=== PATIENT | male | born 1995 | race Caucasian/White ===

== ENCOUNTER 2017-02-06 02:49 | Emergency (ER) | payer OTHER ==
[~2017-02-06] VITALS: Ht 167.6 cm; Wt 110.0 kg
[~2017-02-06 02:49] MED LIST: BACTRIM,SEPT1 TABLET PO; CLINDAMYCIN HC300 MG PO; INTUNIV1 MG PO; MAGIC MOUTHWASH1 ML MM; MOTRIN800 MG PO; PERCOCET 5/31 TABLET PO; STRATTERA40 MG PO; TRAMADOL HCL50 MG PO; TRILEPTAL600 MG PO; ULTRAM50 MG PO
[2017-02-06 02:51] VITALS: BP 134/96
== END 2017-02-06 05:15 | disposition left against medical advice (07) ==
LOC: EME 02:49
DX: K08.89 Other specified disorders of teeth and supporting structures (principal); Z53.21 Procedure and treatment not carried out due to patient leaving prior to being seen by health care provider
CPT/HCPCS: 99281

== ENCOUNTER 2017-04-08 01:14 | Inpatient (IN) | payer OTHER ==
[2017-04-08] VITALS (8 sets, daily range): BP systolic 117–137; BP diastolic 60–87
[~2017-04-08] VITALS: Ht 172.7 cm; Wt 104.0 kg
[2017-04-08 01:35] LABS: BASOPHIL COUNT 0.1 K/uL (0-0.1); EOSINOPHIL (%) 0.6 % (0-5); EOSINOPHIL COUNT 0.1 K/uL (0-0.3); HEMATOCRIT 49.8 % (38.0-50.0); IMMATURE GRANULOCYTE (%) 3.4 % (0.0-0.7); IMMATURE GRANULOCYTE COUNT 0.7 K/uL; INSTRUMENT ABS NEUTROPHIL CT 14.5 K/uL; LYMPHOCYTE COUNT 5.1 K/uL (1.0-2.8); MCH 29.4 PG (29.0-34.0); MCHC 31.9 G/DL (30.0-36.0); MCV 92.2 FL (86-99); MEAN PLAT.VOLUME 10.1 uM^3 (9.0-12.4); MONOCYTE (%) 5.3 % (3-12); MONOCYTE COUNT 1.2 K/uL (0-0.8); NEUTROPHIL (%) 66.9 % (45-76); NEUTROPHIL COUNT 14.5 K/uL (1.8-6.4); PLATELET COUNT 321 K/uL (156-360); RBC DIS.WIDTH-CV 12.4 % (11.8-14.6); RBC DIS.WIDTH-SD 41.7 % (39-53); WHITE BLOOD COUNT 21.7 K/uL (4.1-10.2)
[2017-04-08 01:40] LABS: BASE EXCESS -13.4 mEq/L (-3 to +3); BICARBONATE 18.3 mEq/L (22-26); CARBOXY HGB 3.1 % (0-5); METHEMOGLOBIN 1.5 % (0-1.5); PCO2 66 mm Hg (35-45); PO2 53 mm Hg (80-100)
[2017-04-08 01:41] LABS: COMMENTS - BLOOD GASES C+A+; DEVICE AMBU BAG; FI02 100 %; O2 FLOW 15 L/MIN; SITE RR
[2017-04-08 01:42] LABS: pH 7.05 (7.35-7.45)
[2017-04-08 01:44] LABS: AMYLASE 94 IU/L (1-118); CHLORIDE 104 mEq/L (99-109); POTASSIUM 3.9 mEq/L (3.7-5.4)
[2017-04-08 01:47] LABS: ANION GAP 20 MEQ/L (2-14); GLUCOSE 276 mg/dL (70-99); SODIUM 140 mEq/L (136-147)
[2017-04-08 01:49] LABS: GFR ESTIMATE (CALCULATED) > 59 mL/min/; SERUM ETHYL ALCOHOL < 10 mg/dL
[2017-04-08 01:50] LABS: UREA NITROGEN (BUN) 10 mg/dL (9-23)
[2017-04-08 01:52] LABS: LIPASE 44 U/L (1.0-51.0)
[2017-04-08 01:56] LABS: INTER. NORMALIZED RATIO 1.1; PROTHROMBIN TIME 11.7 SEC (10.2-12.9)
[2017-04-08 01:59] LABS: PTT 28.3 SEC (25-37)
[2017-04-08 02:18] LABS: TROP-I INTERPRETATION NEGATIVE; TROPONIN-I < 0.01 ng/mL (0.0-0.30)
[2017-04-08 02:20] LABS: ADD MIUA? YES; BILIRUBIN NEGATIVE; BLOOD LARGE; COLOR YELLOW ((YELLOW)); GLUCOSE (STRIP) 50; KETONES NEGATIVE; LEUKOCYTES NEGATIVE; NITRITE NEGATIVE; PROTEIN (STRIP) >=500; SPECIFIC GRAVITY 1.042 (1.000-1.030); UROBILINOGEN 0.2 MG/DL (0.2-1.0)
[2017-04-08 02:26] LABS: BACTERIA 2+ /HPF; EPITHELIAL CELLS 1+ /HPF; HYALINE CASTS 30-40 /LPF; MUCUS 2+ /LPF; UCUL ADDED? YES; WHITE BLOOD CELLS 15-20 /HPF (0-5)
[2017-04-08 02:36] LABS: ADD MEDTOX COMMENT Y; AMPHETAMINE NEGATIVE (500 ng/mL); BARBITURATES NEGATIVE (200 ng/mL); BENZODIAZEPINES NEGATIVE (150 ng/mL); COCAINE NEGATIVE (150 ng/mL); INTERNAL CONTROLS VALID? YES; METHADONE NEGATIVE (200 ng/mL); METHAMPHETAMINE NEGATIVE (500 ng/mL); OPIATES (MORPHINE) NEGATIVE (100 ng/mL); OXYCODONE NEGATIVE (100 ng/mL); PHENCYCLIDINE NEGATIVE (25 ng/mL); PROPOXYPHENE NEGATIVE (300 ng/mL); THC CANNABINOIDS PRESUMPTIVE POSITIVE (50 ng/mL); TRICYCLIC ANTIDEPRESSANTS NEGATIVE (300 ng/mL)
[2017-04-08 04:02] LABS: BASE EXCESS -7.6 mEq/L (-3 to +3); BICARBONATE 19.3 mEq/L (22-26); COMMENTS - BLOOD GASES C; DEVICE 840; FI02 100 %; MODE AC; PCO2 43 mm Hg (35-45); PO2 219 mm Hg (80-100); SITE LR ALINE; pH 7.26 (7.35-7.45)
[2017-04-08 04:03] LABS: MECHANICAL RATE 16 resp/min; PEEP 8 CM/H20; TOTAL RESP RATE 27 resp/min
[2017-04-08 05:04] LABS: BASE EXCESS -5.4 mEq/L (-3 to +3); CARBOXY HGB 2.9 % (0-5); METHEMOGLOBIN 1.2 % (0-1.5); PO2 229 mm Hg (80-100)
[2017-04-08 05:05] LABS: PCO2 49 mm Hg (35-45); SITE LR ALINE; pH 7.26 (7.35-7.45)
[2017-04-08 05:06] LABS: COMMENTS - BLOOD GASES C; DEVICE 840; FI02 80 %; MECHANICAL RATE 20 resp/min; MODE AC; PEEP 8 CM/H20; TIDAL VOLUME 500 ML; TOTAL RESP RATE 27 resp/min
[2017-04-08 07:52] LABS: HEMATOCRIT 38.9 % (38.0-50.0); MCH 29.8 PG (29.0-34.0); MCHC 33.4 G/DL (30.0-36.0); MCV 89.2 FL (86-99); MEAN PLAT.VOLUME 9.6 uM^3 (9.0-12.4); PLATELET COUNT 250 K/uL (156-360); RBC DIS.WIDTH-CV 12.3 % (11.8-14.6); RBC DIS.WIDTH-SD 40.5 % (39-53); RED BLOOD COUNT 4.36 M/uL (4.00-5.50); WHITE BLOOD COUNT 26.1 K/uL (4.1-10.2)
[2017-04-08 07:54] LABS: METH RESISTANT S AUREUS PCR NEGATIVE (NEGATIVE)
[2017-04-08 07:59] LABS: PROBE CHECK PASS; SPECIMEN PROCESSING CONTROL PASS
[2017-04-08 08:52] LABS: COMMENTS - BLOOD GASES C+; DEVICE VENT; FI02 40 %; HEMOGLOBIN 13.2 (12.5-16.6); MECHANICAL RATE 12 resp/min; MODE AC; PCO2 38 mm Hg (35-45); PEEP 8 CM/H20; PO2 109 mm Hg (80-100); TIDAL VOLUME 600 ML; TOTAL RESP RATE 24 resp/min; pH 7.31 (7.35-7.45)
[2017-04-08 08:53] LABS: BASE EXCESS -6.6 mEq/L (-3 to +3); BICARBONATE 19.1 mEq/L (22-26); CARBOXY HGB 3.3 % (0-5); METHEMOGLOBIN 1.5 % (0-1.5); O2 SATURATION (CALCULATED) 95.7 % (95-99)
[2017-04-09] VITALS (20 sets, daily range): BP systolic 64–161; BP diastolic 34–90
[2017-04-09 05:24] LABS: BASE EXCESS 4.1 mEq/L (-3 to +3); CARBOXY HGB 1.7 % (0-5); METHEMOGLOBIN 1.7 % (0-1.5); pH 7.36 (7.35-7.45)
[2017-04-09 05:25] LABS: BICARBONATE 30.5 mEq/L (22-26); COMMENTS - BLOOD GASES A+C+; DEVICE VENT; FI02 40 %; MECHANICAL RATE 14 resp/min; MODE AC; PCO2 54 mm Hg (35-45); PEEP 8 CM/H20; PO2 71 mm Hg (80-100); SITE RR; TIDAL VOLUME 600 ML; TOTAL RESP RATE 15 resp/min
[2017-04-09 07:51] LABS: HEMATOCRIT 31.1 % (38.0-50.0); MCH 30.6 PG (29.0-34.0); MCHC 33.8 G/DL (30.0-36.0); MCV 90.7 FL (86-99); MEAN PLAT.VOLUME 9.9 uM^3 (9.0-12.4); PLATELET COUNT 178 K/uL (156-360); RBC DIS.WIDTH-CV 12.6 % (11.8-14.6); RBC DIS.WIDTH-SD 41.2 % (39-53); WHITE BLOOD COUNT 15.7 K/uL (4.1-10.2)
[2017-04-09 07:53] LABS: RED BLOOD COUNT 3.43 M/uL (4.00-5.50)
[2017-04-09 08:08] LABS: ALKALINE PHOSPHATASE 62 IU/L (3-129); ANION GAP 5 MEQ/L (2-14); CHLORIDE 107 MEQ/L (99-109); GFR ESTIMATE (CALCULATED) > 59 mL/min/; GLUCOSE 146 mg/dL (70-99); SAMPLE HEMOLYSIS CHECK 0; SAMPLE ICTERIC CHECK 0; SAMPLE LIPEMIA CHECK 0; SODIUM 141 MEQ/L (136-147); TOTAL BILIRUBIN 0.5 MG/DL (0.0-1.0); UREA NITROGEN (BUN) 12 mg/dL (9-23)
[2017-04-09 08:21] LABS: POTASSIUM 4.9 MEQ/L (3.7-5.4)
[2017-04-10] VITALS (32 sets, daily range): BP systolic 87–166; BP diastolic 36–78
[2017-04-10 06:02] LABS: MCH 28.9 PG (29.0-34.0); MCHC 32.3 G/DL (30.0-36.0); MCV 89.4 FL (86-99); MEAN PLAT.VOLUME 10.6 uM^3 (9.0-12.4); PLATELET COUNT 129 K/uL (156-360); RBC DIS.WIDTH-CV 12.2 % (11.8-14.6); RBC DIS.WIDTH-SD 39.6 % (39-53); WHITE BLOOD COUNT 9.2 K/uL (4.1-10.2)
[2017-04-10 06:04] LABS: RED BLOOD COUNT 2.46 M/uL (4.00-5.50)
[2017-04-10 06:18] LABS: ALKALINE PHOSPHATASE 41 IU/L (3-129); ANION GAP 4 MEQ/L (2-14); CHLORIDE 107 MEQ/L (99-109); GFR ESTIMATE (CALCULATED) > 59 mL/min/; GLUCOSE 140 mg/dL (70-99); POTASSIUM 4.8 MEQ/L (3.7-5.4); SAMPLE HEMOLYSIS CHECK 0; SAMPLE ICTERIC CHECK 0; SAMPLE LIPEMIA CHECK 0; SODIUM 139 MEQ/L (136-147); TOTAL BILIRUBIN 0.4 MG/DL (0.0-1.0); UREA NITROGEN (BUN) 14 mg/dL (9-23)
[2017-04-10 13:36] LABS: BASE EXCESS 6.6 mEq/L (-3 to +3); BICARBONATE 32.2 mEq/L (22-26); CARBOXY HGB 1.4 % (0-5); METHEMOGLOBIN 1.4 % (0-1.5); PCO2 52 mm Hg (35-45)
[2017-04-10 13:37] LABS: COMMENTS - BLOOD GASES A+C+; DEVICE VENT; FI02 70 %; MECHANICAL RATE 14 resp/min; MODE ACVC; PEEP 8 CM/H20; PO2 86 mm Hg (80-100); SITE RR; TOTAL RESP RATE 16 resp/min
[2017-04-11] VITALS (26 sets, daily range): BP systolic 85–140; BP diastolic 42–93
[2017-04-11 05:22] LABS: HEMATOCRIT 23.9 % (38.0-50.0); MCH 31.6 PG (29.0-34.0); MCHC 35.6 G/DL (30.0-36.0); MCV 88.8 FL (86-99); MEAN PLAT.VOLUME 11.6 uM^3 (9.0-12.4); NRBC (%) 0.4 /100 WBC (0-0); PLATELET COUNT 158 K/uL (156-360); RBC DIS.WIDTH-CV 13.1 % (11.8-14.6); RBC DIS.WIDTH-SD 42.3 % (39-53); RED BLOOD COUNT 2.69 M/uL (4.00-5.50); WHITE BLOOD COUNT 9.3 K/uL (4.1-10.2)
[2017-04-11 06:27] LABS: ALKALINE PHOSPHATASE 41 IU/L (3-129); ANION GAP 4 MEQ/L (2-14); CHLORIDE 106 MEQ/L (99-109); GFR ESTIMATE (CALCULATED) > 59 mL/min/; GLUCOSE 132 mg/dL (70-99); POTASSIUM 4.5 MEQ/L (3.7-5.4); SAMPLE HEMOLYSIS CHECK 0; SAMPLE ICTERIC CHECK 0; SAMPLE LIPEMIA CHECK 0; SODIUM 139 MEQ/L (136-147); UREA NITROGEN (BUN) 11 mg/dL (9-23)
[2017-04-11 06:31] LABS: TOTAL BILIRUBIN 0.6 MG/DL (0.0-1.0)
[2017-04-12] VITALS (23 sets, daily range): BP systolic 90–165; BP diastolic 47–89
[2017-04-12 05:32] LABS: HEMATOCRIT 24.1 % (38.0-50.0); MCH 29.6 PG (29.0-34.0); MCHC 32.8 G/DL (30.0-36.0); MCV 90.3 FL (86-99); MEAN PLAT.VOLUME 10.6 uM^3 (9.0-12.4); NRBC (%) 0.3 /100 WBC (0-0); PLATELET COUNT 159 K/uL (156-360); RBC DIS.WIDTH-CV 13.2 % (11.8-14.6); RBC DIS.WIDTH-SD 43.7 % (39-53); RED BLOOD COUNT 2.67 M/uL (4.00-5.50); WHITE BLOOD COUNT 7.5 K/uL (4.1-10.2)
[2017-04-12 06:21] LABS: ALKALINE PHOSPHATASE 40 IU/L (3-129); ANION GAP 6 MEQ/L (2-14); CHLORIDE 108 MEQ/L (99-109); GFR ESTIMATE (CALCULATED) > 59 mL/min/; GLUCOSE 125 mg/dL (70-99); POTASSIUM 4.2 MEQ/L (3.7-5.4); SAMPLE HEMOLYSIS CHECK 0; SAMPLE ICTERIC CHECK 0; SAMPLE LIPEMIA CHECK 0; SODIUM 141 MEQ/L (136-147); TOTAL BILIRUBIN 0.5 MG/DL (0.0-1.0); UREA NITROGEN (BUN) 8 mg/dL (9-23)
[2017-04-12 09:31] LABS: DIRECT BILIRUBIN 0.2 mg/dL (0.0-0.3)
[2017-04-12 12:09] LABS: ADD MIUA? YES; BILIRUBIN NEGATIVE; BLOOD NEGATIVE; COLOR AMBER ((YELLOW)); GLUCOSE (STRIP) NEGATIVE; KETONES NEGATIVE; LEUKOCYTES NEGATIVE; NITRITE NEGATIVE; PROTEIN (STRIP) 100; SPECIFIC GRAVITY 1.035 (1.000-1.030)
[2017-04-12 12:30] LABS: BACTERIA RARE /HPF; EPITHELIAL CELLS RARE /HPF; MUCUS 2+ /LPF; RED BLOOD CELLS 15-20 /HPF (0-5); UCUL ADDED? YES
[2017-04-13] VITALS (24 sets, daily range): BP systolic 109–168; BP diastolic 49–93
[2017-04-13 05:45] LABS: HEMATOCRIT 22.9 % (38.0-50.0); MCH 29.6 PG (29.0-34.0); MCHC 32.3 G/DL (30.0-36.0); MCV 91.6 FL (86-99); MEAN PLAT.VOLUME 10.1 uM^3 (9.0-12.4); NRBC (%) 0.4 /100 WBC (0-0); PLATELET COUNT 200 K/uL (156-360); RBC DIS.WIDTH-CV 13.5 % (11.8-14.6); RBC DIS.WIDTH-SD 45.2 % (39-53); WHITE BLOOD COUNT 7.4 K/uL (4.1-10.2)
[2017-04-13 06:37] LABS: ALKALINE PHOSPHATASE 38 IU/L (3-129); ANION GAP 5 MEQ/L (2-14); CHLORIDE 106 MEQ/L (99-109); GFR ESTIMATE (CALCULATED) > 59 mL/min/; GLUCOSE 125 mg/dL (70-99); POTASSIUM 3.9 MEQ/L (3.7-5.4); SAMPLE HEMOLYSIS CHECK 0; SAMPLE ICTERIC CHECK 0; SAMPLE LIPEMIA CHECK 0; SODIUM 140 MEQ/L (136-147); TOTAL BILIRUBIN 0.5 MG/DL (0.0-1.0); TRIGLYCERIDES 111 MG/DL (Normal: <150); UREA NITROGEN (BUN) 10 mg/dL (9-23)
[2017-04-13 06:43] LABS: EOSINOPHIL COUNT 0.3 K/uL (0-0.3); IMMATURE GRANULOCYTE (%) 1.9 % (0.0-0.7); IMMATURE GRANULOCYTE COUNT 0.1 K/uL; INSTRUMENT ABS NEUTROPHIL CT 4.7 K/uL; LYMPHOCYTE COUNT 1.3 K/uL (1.0-2.8); MONOCYTE (%) 13.3 % (3-12); NEUTROPHIL (%) 62.8 % (45-76); NEUTROPHIL COUNT 4.7 K/uL (1.8-6.4); PLATELET CLUMPS PRESENT - PLATELET COUNT APPEARS ADQ.
[2017-04-13 11:49] LABS: POINT-OF-CARE METER ID UU14208751
[2017-04-13 16:18] LABS: HEMATOCRIT 24.3 % (38.0-50.0); MCV 92.4 FL (86-99)
[2017-04-13 16:28] LABS: ANION GAP 7 MEQ/L (2-14); CHLORIDE 110 MEQ/L (99-109); MAGNESIUM 1.9 mg/dl (1.3-2.7); POTASSIUM 3.5 MEQ/L (3.7-5.4); SAMPLE HEMOLYSIS CHECK 0; SAMPLE ICTERIC CHECK 0; SAMPLE LIPEMIA CHECK 0; SODIUM 147 MEQ/L (136-147)
[2017-04-13 16:34] LABS: GFR ESTIMATE (CALCULATED) > 59 mL/min/; GLUCOSE 121 mg/dL (70-99); UREA NITROGEN (BUN) 12 mg/dL (9-23)
[2017-04-13 16:39] LABS: TROP-I INTERPRETATION NEGATIVE; TROPONIN-I 0.02 ng/mL (0.0-0.30)
[2017-04-14] VITALS (23 sets, daily range): BP systolic 88–174; BP diastolic 43–106
[2017-04-14 08:59] LABS: HEMATOCRIT 24.1 % (38.0-50.0); MCH 30.6 PG (29.0-34.0); MCHC 31.5 G/DL (30.0-36.0); MCHC 32.4 G/DL (30.0-36.0); MCV 94.5 FL (86-99); MCV 95.3 FL (86-99); MEAN PLAT.VOLUME 11.5 uM^3 (9.0-12.4); NRBC (%) 0.3 /100 WBC (0-0); PLATELET COUNT 206 K/uL (156-360); PLATELET COUNT 215 K/uL (156-360); RBC DIS.WIDTH-CV 13.6 % (11.8-14.6); RBC DIS.WIDTH-SD 47.4 % (39-53); RBC DIS.WIDTH-SD 47.8 % (39-53); RED BLOOD COUNT 2.53 M/uL (4.00-5.50); RED BLOOD COUNT 2.55 M/uL (4.00-5.50); WHITE BLOOD COUNT 10.3 K/uL (4.1-10.2); WHITE BLOOD COUNT 10.5 K/uL (4.1-10.2)
[2017-04-14 09:29] LABS: ALKALINE PHOSPHATASE 41 IU/L (3-129); ANION GAP 8 MEQ/L (2-14); CHLORIDE 112 MEQ/L (99-109); EOSINOPHIL (%) 1.2 % (0-5); EOSINOPHIL COUNT 0.1 K/uL (0-0.3); GFR ESTIMATE (CALCULATED) > 59 mL/min/; GLUCOSE 98 mg/dL (70-99); IMMATURE GRANULOCYTE (%) 1.8 % (0.0-0.7); IMMATURE GRANULOCYTE COUNT 0.2 K/uL; INSTRUMENT ABS NEUTROPHIL CT 7.6 K/uL; LYMPHOCYTE COUNT 1.5 K/uL (1.0-2.8); MAGNESIUM 2.1 mg/dl (1.3-2.7); MONOCYTE (%) 10.1 % (3-12); MONOCYTE COUNT 1.1 K/uL (0-0.8); NEUTROPHIL (%) 72.3 % (45-76); NEUTROPHIL COUNT 7.6 K/uL (1.8-6.4); POTASSIUM 4.1 MEQ/L (3.7-5.4); SAMPLE HEMOLYSIS CHECK 0; SAMPLE ICTERIC CHECK 0; SAMPLE LIPEMIA CHECK 0; SODIUM 147 MEQ/L (136-147); TOTAL BILIRUBIN 0.5 MG/DL (0.0-1.0); UREA NITROGEN (BUN) 16 mg/dL (9-23)
[2017-04-14 09:34] LABS: TROP-I INTERPRETATION NEGATIVE; TROPONIN-I < 0.01 ng/mL (0.0-0.30)
[2017-04-15] VITALS (24 sets, daily range): BP systolic 85–153; BP diastolic 49–86
[2017-04-15 05:46] LABS: BASE EXCESS 5.8 mEq/L (-3 to +3); BICARBONATE 30.6 mEq/L (22-26); COMMENTS - BLOOD GASES C+A+; DEVICE 840 VENT; FI02 40 %; METHEMOGLOBIN 1.2 % (0-1.5); MODE SPONT; PCO2 45 mm Hg (35-45); PO2 74 mm Hg (80-100); PRES. SUPPORT 5 CM/H2O; SITE LR; TOTAL RESP RATE 16 resp/min; pH 7.44 (7.35-7.45)
[2017-04-15 05:47] LABS: PEEP 5 CM/H20
[2017-04-15 07:12] LABS: HEMATOCRIT 23.7 % (38.0-50.0); MCH 29.6 PG (29.0-34.0); MCHC 32.1 G/DL (30.0-36.0); MCV 92.2 FL (86-99); MEAN PLAT.VOLUME 10.4 uM^3 (9.0-12.4); NRBC (%) 0.2 /100 WBC (0-0); RBC DIS.WIDTH-CV 13.3 % (11.8-14.6); RBC DIS.WIDTH-SD 45.1 % (39-53); RED BLOOD COUNT 2.57 M/uL (4.00-5.50); WHITE BLOOD COUNT 13.7 K/uL (4.1-10.2)
[2017-04-15 07:26] LABS: ALKALINE PHOSPHATASE 48 IU/L (3-129); ANION GAP 6 MEQ/L (2-14); CHLORIDE 111 MEQ/L (99-109); GFR ESTIMATE (CALCULATED) > 59 mL/min/; GLUCOSE 140 mg/dL (70-99); MAGNESIUM 2.4 mg/dl (1.3-2.7); SAMPLE HEMOLYSIS CHECK 0; SAMPLE ICTERIC CHECK 0; SAMPLE LIPEMIA CHECK 0; SODIUM 145 MEQ/L (136-147); TOTAL BILIRUBIN 0.5 MG/DL (0.0-1.0); UREA NITROGEN (BUN) 21 mg/dL (9-23)
[2017-04-15 07:32] LABS: PLATELET COUNT 326 K/uL (156-360)
[2017-04-15 08:21] LABS: EOSINOPHIL (%) 2.5 % (0-5); EOSINOPHIL COUNT 0.3 K/uL (0-0.3); IMMATURE GRANULOCYTE (%) 1.2 % (0.0-0.7); IMMATURE GRANULOCYTE COUNT 0.2 K/uL; LYMPHOCYTE COUNT 1.1 K/uL (1.0-2.8); MONOCYTE (%) 7.7 % (3-12); MONOCYTE COUNT 1.1 K/uL (0-0.8); NEUTROPHIL (%) 80.4 % (45-76)
[2017-04-16] VITALS (24 sets, daily range): BP systolic 84–171; BP diastolic 51–104
[2017-04-16 06:44] LABS: HEMATOCRIT 23.6 % (38.0-50.0); MCH 30.6 PG (29.0-34.0); MCHC 32.2 G/DL (30.0-36.0); MCV 95.2 FL (86-99); MEAN PLAT.VOLUME 10.3 uM^3 (9.0-12.4); NRBC (%) 0.3 /100 WBC (0-0); RBC DIS.WIDTH-CV 13.3 % (11.8-14.6); RBC DIS.WIDTH-SD 45.9 % (39-53); RED BLOOD COUNT 2.48 M/uL (4.00-5.50); WHITE BLOOD COUNT 14.2 K/uL (4.1-10.2)
[2017-04-16 06:47] LABS: PLATELET COUNT 427 K/uL (156-360)
[2017-04-16 07:12] LABS: ALKALINE PHOSPHATASE 53 IU/L (3-129); ANION GAP 7 MEQ/L (2-14); CHLORIDE 109 MEQ/L (99-109); GFR ESTIMATE (CALCULATED) > 59 mL/min/; POTASSIUM 3.8 MEQ/L (3.7-5.4); SAMPLE HEMOLYSIS CHECK 0; SAMPLE ICTERIC CHECK 0; SAMPLE LIPEMIA CHECK 0; SODIUM 143 MEQ/L (136-147); TOTAL BILIRUBIN 0.5 MG/DL (0.0-1.0); UREA NITROGEN (BUN) 21 mg/dL (9-23)
[2017-04-16 07:15] LABS: GLUCOSE 94 mg/dL (70-99)
[2017-04-17] VITALS (24 sets, daily range): BP systolic 82–183; BP diastolic 50–111
[2017-04-17 05:36] LABS: EOSINOPHIL (%) 2.6 % (0-5); EOSINOPHIL COUNT 0.4 K/uL (0-0.3); HEMATOCRIT 22.9 % (38.0-50.0); IMMATURE GRANULOCYTE COUNT 0.2 K/uL; INSTRUMENT ABS NEUTROPHIL CT 11.9 K/uL; LYMPHOCYTE COUNT 1.4 K/uL (1.0-2.8); MCH 31.4 PG (29.0-34.0); MCHC 32.8 G/DL (30.0-36.0); MCV 95.8 FL (86-99); MEAN PLAT.VOLUME 10.1 uM^3 (9.0-12.4); MONOCYTE (%) 8.6 % (3-12); MONOCYTE COUNT 1.3 K/uL (0-0.8); NEUTROPHIL (%) 78.5 % (45-76); NEUTROPHIL COUNT 11.9 K/uL (1.8-6.4); PLATELET COUNT 465 K/uL (156-360); RBC DIS.WIDTH-CV 13.2 % (11.8-14.6); RBC DIS.WIDTH-SD 45.3 % (39-53); RED BLOOD COUNT 2.39 M/uL (4.00-5.50); WHITE BLOOD COUNT 15.2 K/uL (4.1-10.2)
[2017-04-17 06:37] LABS: ALKALINE PHOSPHATASE 55 IU/L (3-129); ANION GAP 7 MEQ/L (2-14); CHLORIDE 112 MEQ/L (99-109); GFR ESTIMATE (CALCULATED) > 59 mL/min/; GLUCOSE 110 mg/dL (70-99); MAGNESIUM 2.3 mg/dl (1.3-2.7); POTASSIUM 3.9 MEQ/L (3.7-5.4); SAMPLE HEMOLYSIS CHECK 0; SAMPLE ICTERIC CHECK 0; SAMPLE LIPEMIA CHECK 0; SODIUM 146 MEQ/L (136-147); TOTAL BILIRUBIN 0.4 MG/DL (0.0-1.0); UREA NITROGEN (BUN) 20 mg/dL (9-23)
[2017-04-17 13:41] LABS: ADD MIUA? NO; BILIRUBIN NEGATIVE; BLOOD NEGATIVE; COLOR YELLOW ((YELLOW)); GLUCOSE (STRIP) NEGATIVE; KETONES NEGATIVE; LEUKOCYTES NEGATIVE; NITRITE NEGATIVE; PROTEIN (STRIP) 30; SPECIFIC GRAVITY 1.018 (1.000-1.030); UCUL ADDED? NO
[2017-04-18] VITALS (21 sets, daily range): BP systolic 80–185; BP diastolic 48–111
[2017-04-18 05:53] LABS: EOSINOPHIL (%) 2.2 % (0-5); EOSINOPHIL COUNT 0.4 K/uL (0-0.3); HEMATOCRIT 45.8 % (38.0-50.0); IMMATURE GRANULOCYTE (%) 0.9 % (0.0-0.7); IMMATURE GRANULOCYTE COUNT 0.2 K/uL; INSTRUMENT ABS NEUTROPHIL CT 14.2 K/uL; MCH 29.5 PG (29.0-34.0); MONOCYTE (%) 6.6 % (3-12); MONOCYTE COUNT 1.1 K/uL (0-0.8); NEUTROPHIL (%) 84.4 % (45-76); NEUTROPHIL COUNT 14.2 K/uL (1.8-6.4); NRBC (%) 0.2 /100 WBC (0-0); RBC DIS.WIDTH-CV 12.9 % (11.8-14.6); RBC DIS.WIDTH-SD 44.3 % (39-53); WHITE BLOOD COUNT 16.9 K/uL (4.1-10.2)
[2017-04-18 05:54] LABS: RED BLOOD COUNT 4.82 M/uL (4.00-5.50)
[2017-04-18 05:58] LABS: ALKALINE PHOSPHATASE 68 IU/L (3-129); ANION GAP 7 MEQ/L (2-14); CHLORIDE 109 MEQ/L (99-109); GFR ESTIMATE (CALCULATED) > 59 mL/min/; GLUCOSE 100 mg/dL (70-99); MAGNESIUM 2.2 mg/dl (1.3-2.7); POTASSIUM 4.3 MEQ/L (3.7-5.4); SAMPLE HEMOLYSIS CHECK 0; SAMPLE ICTERIC CHECK 0; SAMPLE LIPEMIA CHECK 0; SODIUM 144 MEQ/L (136-147); TOTAL BILIRUBIN 0.5 MG/DL (0.0-1.0); UREA NITROGEN (BUN) 20 mg/dL (9-23)
[2017-04-18 06:35] LABS: MEAN PLAT.VOLUME 10.3 uM^3 (9.0-12.4); PLAT.SUFFICIENCY INCREASED; PLATELET COUNT 406 K/uL (156-360)
[2017-04-19] VITALS (30 sets, daily range): BP systolic 0–184; BP diastolic 0–104
[2017-04-19 05:10] LABS: EOSINOPHIL (%) 1.5 % (0-5); EOSINOPHIL COUNT 0.3 K/uL (0-0.3); HEMATOCRIT 21.4 % (38.0-50.0); IMMATURE GRANULOCYTE (%) 1.2 % (0.0-0.7); IMMATURE GRANULOCYTE COUNT 0.2 K/uL; MCHC 31.8 G/DL (30.0-36.0); MCV 94.3 FL (86-99); MONOCYTE (%) 8.6 % (3-12); MONOCYTE COUNT 1.5 K/uL (0-0.8); NEUTROPHIL (%) 82.8 % (45-76); NRBC (%) 0.2 /100 WBC (0-0); PLATELET COUNT 524 K/uL (156-360); RBC DIS.WIDTH-SD 43.8 % (39-53); RED BLOOD COUNT 2.27 M/uL (4.00-5.50); WHITE BLOOD COUNT 16.9 K/uL (4.1-10.2)
[2017-04-19 05:16] LABS: CHLORIDE 112 mEq/L (99-109); POTASSIUM 4.3 mEq/L (3.7-5.4); SODIUM 143 mEq/L (136-147)
[2017-04-19 05:18] LABS: GLUCOSE 119 mg/dL (70-99)
[2017-04-19 05:19] LABS: ANION GAP 8 MEQ/L (2-14)
[2017-04-19 05:22] LABS: GFR ESTIMATE (CALCULATED) > 59 mL/min/; UREA NITROGEN (BUN) 20 mg/dL (9-23)
[2017-04-19 07:58] LABS: HEMATOCRIT 20.1 % (38.0-50.0); MCHC 32.3 G/DL (30.0-36.0); MCV 92.6 FL (86-99); MEAN PLAT.VOLUME 9.8 uM^3 (9.0-12.4); NRBC (%) 0.2 /100 WBC (0-0); PLATELET COUNT 492 K/uL (156-360); RBC DIS.WIDTH-CV 13.2 % (11.8-14.6); RED BLOOD COUNT 2.17 M/uL (4.00-5.50); WHITE BLOOD COUNT 16.5 K/uL (4.1-10.2)
[2017-04-19 10:38] LABS: TRIGLYCERIDES 171 MG/DL (Normal: <150)
[2017-04-19 13:38] LABS: Estimated Average Glucose 111 mg/dL (70-123); HEMOGLOBIN A1c (GLYCOHEMOGLOB) 5.5 % HGB (Below 5.7)
[2017-04-19 16:41] LABS: HEMATOCRIT 28.4 % (38.0-50.0); MCV 92.8 FL (86-99)
[2017-04-19 16:45] LABS: HDL CHOLESTEROL 17 MG/DL (Desirable>=40); LDL CHOLESTEROL 65 mg/dL (Desirable<100); NON-HDL CHOLESTEROL 100 mg/dL (Desirable<160); TOTAL CHOLESTEROL 117 mg/dL (Desirable<200)
[2017-04-19 16:46] LABS: SAMPLE HEMOLYSIS CHECK 0; SAMPLE ICTERIC CHECK 0; SAMPLE LIPEMIA CHECK 0
[2017-04-20] VITALS (22 sets, daily range): BP systolic 93–172; BP diastolic 47–118
[2017-04-20 05:27] LABS: BASE EXCESS 4.2 mEq/L (-3 to +3); BICARBONATE 29.2 mEq/L (22-26); CARBOXY HGB 2.3 % (0-5); COMMENTS - BLOOD GASES C+A+; DEVICE 840 VENT; FI02 35 %; METHEMOGLOBIN 1.6 % (0-1.5); MODE SPONT; PCO2 45 mm Hg (35-45); PO2 68 mm Hg (80-100); PRES. SUPPORT 5 CM/H2O; SITE LR; TOTAL RESP RATE 15 resp/min; pH 7.42 (7.35-7.45)
[2017-04-20 05:28] LABS: PEEP 5 CM/H20
[2017-04-20 05:48] LABS: EOSINOPHIL (%) 2.2 % (0-5); EOSINOPHIL COUNT 0.3 K/uL (0-0.3); HEMATOCRIT 27.6 % (38.0-50.0); IMMATURE GRANULOCYTE (%) 1.3 % (0.0-0.7); IMMATURE GRANULOCYTE COUNT 0.2 K/uL; INSTRUMENT ABS NEUTROPHIL CT 10.3 K/uL; MCH 29.6 PG (29.0-34.0); MCHC 32.2 G/DL (30.0-36.0); MCV 91.7 FL (86-99); MONOCYTE (%) 9.9 % (3-12); MONOCYTE COUNT 1.3 K/uL (0-0.8); NEUTROPHIL (%) 78.5 % (45-76); NEUTROPHIL COUNT 10.3 K/uL (1.8-6.4); NRBC (%) 0.2 /100 WBC (0-0); RBC DIS.WIDTH-CV 13.7 % (11.8-14.6); RBC DIS.WIDTH-SD 45.5 % (39-53); WHITE BLOOD COUNT 13.1 K/uL (4.1-10.2)
[2017-04-20 05:55] LABS: RED BLOOD COUNT 3.01 M/uL (4.00-5.50)
[2017-04-20 06:07] LABS: ANION GAP 9 MEQ/L (2-14); CHLORIDE 111 MEQ/L (99-109); GFR ESTIMATE (CALCULATED) > 59 mL/min/; GLUCOSE 137 mg/dL (70-99); MAGNESIUM 2.2 mg/dl (1.3-2.7); POTASSIUM 3.8 MEQ/L (3.7-5.4); SAMPLE HEMOLYSIS CHECK 0; SAMPLE ICTERIC CHECK 0; SAMPLE LIPEMIA CHECK 0; SODIUM 145 MEQ/L (136-147); UREA NITROGEN (BUN) 19 mg/dL (9-23)
[2017-04-20 06:19] LABS: PLAT.SUFFICIENCY ADEQUATE; PLATELET CLUMPS PRESENT - PLATELET COUNT APPEARS ADQ.
[2017-04-21] VITALS (24 sets, daily range): BP systolic 94–172; BP diastolic 47–93
[2017-04-21 09:30] LABS: ADD MIUA? NO; BILIRUBIN NEGATIVE; BLOOD NEGATIVE; COLOR YELLOW ((YELLOW)); GLUCOSE (STRIP) NEGATIVE; KETONES NEGATIVE; LEUKOCYTES NEGATIVE; NITRITE NEGATIVE; PROTEIN (STRIP) NEGATIVE; SPECIFIC GRAVITY 1.019 (1.000-1.030)
[2017-04-21 09:39] LABS: BASOPHIL COUNT 0.1 K/uL (0-0.1); EOSINOPHIL (%) 2.5 % (0-5); EOSINOPHIL COUNT 0.3 K/uL (0-0.3); HEMATOCRIT 23.9 % (38.0-50.0); IMMATURE GRANULOCYTE (%) 1.4 % (0.0-0.7); IMMATURE GRANULOCYTE COUNT 0.2 K/uL; INSTRUMENT ABS NEUTROPHIL CT 8.8 K/uL; LYMPHOCYTE COUNT 0.9 K/uL (1.0-2.8); MCH 30.9 PG (29.0-34.0); MCHC 33.1 G/DL (30.0-36.0); MCV 93.4 FL (86-99); MEAN PLAT.VOLUME 9.5 uM^3 (9.0-12.4); MONOCYTE (%) 9.7 % (3-12); MONOCYTE COUNT 1.1 K/uL (0-0.8); NEUTROPHIL (%) 78.1 % (45-76); NEUTROPHIL COUNT 8.8 K/uL (1.8-6.4); PLATELET COUNT 366 K/uL (156-360); RBC DIS.WIDTH-CV 13.6 % (11.8-14.6); RED BLOOD COUNT 2.56 M/uL (4.00-5.50); WHITE BLOOD COUNT 11.3 K/uL (4.1-10.2)
[2017-04-21 10:21] LABS: ANION GAP 4 MEQ/L (2-14); CHLORIDE 109 MEQ/L (99-109); GFR ESTIMATE (CALCULATED) > 59 mL/min/; GLUCOSE 114 mg/dL (70-99); SAMPLE HEMOLYSIS CHECK 0; SAMPLE ICTERIC CHECK 0; SAMPLE LIPEMIA CHECK 0; SODIUM 142 MEQ/L (136-147); UREA NITROGEN (BUN) 15 mg/dL (9-23)
[2017-04-22] VITALS (19 sets, daily range): BP systolic 113–167; BP diastolic 53–98
[2017-04-22 05:34] LABS: EOSINOPHIL COUNT 0.3 K/uL (0-0.3); HEMATOCRIT 24.5 % (38.0-50.0); IMMATURE GRANULOCYTE (%) 1.7 % (0.0-0.7); IMMATURE GRANULOCYTE COUNT 0.2 K/uL; INSTRUMENT ABS NEUTROPHIL CT 9.3 K/uL; LYMPHOCYTE COUNT 1.3 K/uL (1.0-2.8); MCV 93.5 FL (86-99); MEAN PLAT.VOLUME 9.6 uM^3 (9.0-12.4); MONOCYTE (%) 11.4 % (3-12); MONOCYTE COUNT 1.4 K/uL (0-0.8); NEUTROPHIL (%) 74.6 % (45-76); NEUTROPHIL COUNT 9.3 K/uL (1.8-6.4); PLATELET COUNT 386 K/uL (156-360); RBC DIS.WIDTH-CV 13.2 % (11.8-14.6); RBC DIS.WIDTH-SD 44.1 % (39-53); RED BLOOD COUNT 2.62 M/uL (4.00-5.50); WHITE BLOOD COUNT 12.5 K/uL (4.1-10.2)
[2017-04-22 07:18] LABS: ANION GAP 7 MEQ/L (2-14); CHLORIDE 111 MEQ/L (99-109); POTASSIUM 4.2 MEQ/L (3.7-5.4); SAMPLE HEMOLYSIS CHECK 0; SAMPLE ICTERIC CHECK 0; SAMPLE LIPEMIA CHECK 0; SODIUM 145 MEQ/L (136-147)
[2017-04-22 07:24] LABS: GFR ESTIMATE (CALCULATED) > 59 mL/min/; GLUCOSE 110 mg/dL (70-99); UREA NITROGEN (BUN) 12 mg/dL (9-23)
[2017-04-23] VITALS (23 sets, daily range): BP systolic 115–188; BP diastolic 78–112
[2017-04-24] VITALS (21 sets, daily range): BP systolic 134–193; BP diastolic 78–111
[2017-04-25] VITALS (19 sets, daily range): BP systolic 132–189; BP diastolic 83–111
[2017-04-25 05:51] LABS: BASOPHIL COUNT 0.1 K/uL (0-0.1); EOSINOPHIL (%) 3.2 % (0-5); EOSINOPHIL COUNT 0.4 K/uL (0-0.3); HEMATOCRIT 26.7 % (38.0-50.0); IMMATURE GRANULOCYTE (%) 2.2 % (0.0-0.7); IMMATURE GRANULOCYTE COUNT 0.3 K/uL; INSTRUMENT ABS NEUTROPHIL CT 8.2 K/uL; LYMPHOCYTE COUNT 1.5 K/uL (1.0-2.8); MCH 29.7 PG (29.0-34.0); MCHC 31.8 G/DL (30.0-36.0); MCV 93.4 FL (86-99); MEAN PLAT.VOLUME 9.4 uM^3 (9.0-12.4); MONOCYTE (%) 12.3 % (3-12); MONOCYTE COUNT 1.5 K/uL (0-0.8); NEUTROPHIL (%) 69.3 % (45-76); NEUTROPHIL COUNT 8.2 K/uL (1.8-6.4); PLATELET COUNT 315 K/uL (156-360); RBC DIS.WIDTH-CV 12.9 % (11.8-14.6); RBC DIS.WIDTH-SD 42.7 % (39-53); RED BLOOD COUNT 2.86 M/uL (4.00-5.50); WHITE BLOOD COUNT 11.8 K/uL (4.1-10.2)
[2017-04-25 06:38] LABS: ALKALINE PHOSPHATASE 148 IU/L (3-129); ANION GAP 5 MEQ/L (2-14); CHLORIDE 107 MEQ/L (99-109); GFR ESTIMATE (CALCULATED) > 59 mL/min/; GLUCOSE 131 mg/dL (70-99); POTASSIUM 3.9 MEQ/L (3.7-5.4); SAMPLE HEMOLYSIS CHECK 0; SAMPLE ICTERIC CHECK 0; SAMPLE LIPEMIA CHECK 0; SODIUM 141 MEQ/L (136-147); TOTAL BILIRUBIN 0.3 MG/DL (0.0-1.0); UREA NITROGEN (BUN) 16 mg/dL (9-23)
[2017-04-26] VITALS (15 sets, daily range): BP systolic 140–179; BP diastolic 82–112
[2017-04-26 08:10] LABS: ALKALINE PHOSPHATASE 178 IU/L (3-129); ANION GAP 8 MEQ/L (2-14); CHLORIDE 105 MEQ/L (99-109); GFR ESTIMATE (CALCULATED) > 59 mL/min/; GLUCOSE 104 mg/dL (70-99); POTASSIUM 4.2 MEQ/L (3.7-5.4); SAMPLE HEMOLYSIS CHECK 1; SAMPLE ICTERIC CHECK 0; SAMPLE LIPEMIA CHECK 0; SODIUM 141 MEQ/L (136-147); UREA NITROGEN (BUN) 11 mg/dL (9-23)
[2017-04-26 08:13] LABS: TOTAL BILIRUBIN 0.5 MG/DL (0.0-1.0)
[2017-04-26 09:47] LABS: BASOPHIL COUNT 0.1 K/uL (0-0.1); EOSINOPHIL COUNT 0.3 K/uL (0-0.3); HEMATOCRIT 30.7 % (38.0-50.0); IMMATURE GRANULOCYTE (%) 2.6 % (0.0-0.7); IMMATURE GRANULOCYTE COUNT 0.4 K/uL; INSTRUMENT ABS NEUTROPHIL CT 9.6 K/uL; LYMPHOCYTE COUNT 1.4 K/uL (1.0-2.8); MCH 29.6 PG (29.0-34.0); MCHC 32.6 G/DL (30.0-36.0); MCV 90.8 FL (86-99); MEAN PLAT.VOLUME 9.8 uM^3 (9.0-12.4); MONOCYTE (%) 11.6 % (3-12); MONOCYTE COUNT 1.5 K/uL (0-0.8); NEUTROPHIL (%) 72.6 % (45-76); NEUTROPHIL COUNT 9.6 K/uL (1.8-6.4); PLATELET COUNT 385 K/uL (156-360); RBC DIS.WIDTH-CV 13.2 % (11.8-14.6); RBC DIS.WIDTH-SD 42.7 % (39-53); RED BLOOD COUNT 3.38 M/uL (4.00-5.50); WHITE BLOOD COUNT 13.2 K/uL (4.1-10.2)
[2017-04-27] VITALS (13 sets, daily range): BP systolic 150–164; BP diastolic 94–112
[2017-04-28] VITALS: BP 145/93
[2017-04-28 04:00] VITALS: BP 152/94
[2017-04-28 08:00] VITALS: BP 170/105
[2017-04-28 10:30] VITALS: BP 146/94
[2017-04-28] MEDS ORDERED: NIFEREX-150,FE150 MG PO (11:56)
[2017-04-28] MEDS ORDERED: OXYCODONE HCL5 MG PO (11:56)
[2017-04-28] MEDS ORDERED: LOVENOX40 MG/0.4 SC (11:56)
[2017-04-28] MEDS ORDERED: FAMOTIDINE40 MG PO (11:56)
[2017-04-28] MEDS ORDERED: Tylenol Extra Streng PO (11:56)
[2017-04-28] MEDS ORDERED: DUONEB 2.5-0.5 M3 ML IPPB (11:56)
[2017-04-28] MEDS ORDERED: HALDOL5 MG PO (11:56)
[2017-04-28] MEDS ORDERED: LOPRESSOR25 MG PO (11:56)
[2017-04-28] MEDS ORDERED: MUCINEX600 MG PO (11:56)
[2017-04-28] MEDS ORDERED: LISINOPRIL10 MG PO (11:56)
[2017-04-28] MEDS ORDERED: OXCARBAZEPINE300 MG PO (11:56)
[2017-04-28] MEDS ORDERED: OYSTER SHELL 51 EACH PO (11:56)
[2017-04-28] MEDS ORDERED: ATORVASTATIN CA40 MG PO (11:56)
[2017-04-28] MEDS ORDERED: FLONASE16 G1 BOTH NARES (11:56)
[2017-04-28] MEDS ORDERED: SENNA PLUS TAB1 EACH PO (11:56)
[2017-04-28] MEDS ORDERED: DIAZEPAM5 MG PO (11:56)
[2017-04-28] MEDS ORDERED: ASPIR-LOW81 MG PO (11:56)
[2017-04-28 12:00] VITALS: BP 120/89
== END 2017-04-28 13:52 | disposition designated cancer center or children's hospital (05) | DRG 4 ==
LOC: TRA 01:14 → EDOF 04:00 → 4WEST 04:00 → ENRESERV 04:07 → 4WEST 06:05
PROVIDERS: Emergency Medicine; Obstetrics & Gynecology; Specialist; Surgery
PROC: 5A1955Z Respiratory Ventilation, Greater than 96 Consecutive Hours (ICD-10-PCS; principal; 2017-04-08)
PROC: 0BH17EZ Insertion of Endotracheal Airway into Trachea, Via Natural or Artificial Opening (ICD-10-PCS; principal; 2017-04-08)
PROC: 03HY32Z Insertion of Monitoring Device into Upper Artery, Percutaneous Approach (ICD-10-PCS; 2017-04-08)
PROC: 4A133B1 Monitoring of Arterial Pressure, Peripheral, Percutaneous Approach (ICD-10-PCS; 2017-04-08)
PROC: 0W9930Z Drainage of Right Pleural Cavity with Drainage Device, Percutaneous Approach (ICD-10-PCS; 2017-04-08)
PROC: 0W9B30Z Drainage of Left Pleural Cavity with Drainage Device, Percutaneous Approach (ICD-10-PCS; 2017-04-08)
PROC: 0WJ63ZZ Inspection of Neck, Percutaneous Approach (ICD-10-PCS; 2017-04-08)
PROC: 30233N1 Transfusion of Nonautologous Red Blood Cells into Peripheral Vein, Percutaneous Approach (ICD-10-PCS; 2017-04-10)
PROC: 0B110F4 Bypass Trachea to Cutaneous with Tracheostomy Device, Open Approach (ICD-10-PCS; 2017-04-18)
PROC: 0H5 Skin and Breast, Destruction (ICD-10-PCS; 2017-04-18)
DX: S27.331A Laceration of lung, unilateral, initial encounter (principal); T79.7XXA Traumatic subcutaneous emphysema, initial encounter; S27.2XXA Traumatic hemopneumothorax, initial encounter; S22.41XA Multiple fractures of ribs, right side, initial encounter for closed fracture; S27.322A Contusion of lung, bilateral, initial encounter; S06.0X9A Concussion with loss of consciousness of unspecified duration, initial encounter; S20.311A Abrasion of right front wall of thorax, initial encounter; V29.9XXA Motorcycle rider (driver) (passenger) injured in unspecified traffic accident, initial encounter; J96.01 Acute respiratory failure with hypoxia; J69.0 Pneumonitis due to inhalation of food and vomit; I63.9 Cerebral infarction, unspecified; G93.1 Anoxic brain damage, not elsewhere classified; E87.2 Acidosis; S37.019A Minor contusion of unspecified kidney, initial encounter; E88.09 Other disorders of plasma-protein metabolism, not elsewhere classified; J93.82 Other air leak; D62 Acute posthemorrhagic anemia; E87.70 Fluid overload, unspecified; K31.84 Gastroparesis; F06.4 Anxiety disorder due to known physiological condition; I10 Essential (primary) hypertension; I95.9 Hypotension, unspecified; F60.9 Personality disorder, unspecified; F90.9 Attention-deficit hyperactivity disorder, unspecified type; J98.11 Atelectasis; R09.3 Abnormal sputum; L92.9 Granulomatous disorder of the skin and subcutaneous tissue, unspecified; F12.10 Cannabis abuse, uncomplicated; R40.2410 Glasgow coma scale score 13-15, unspecified time; F17.210 Nicotine dependence, cigarettes, uncomplicated; E66.01 Morbid (severe) obesity due to excess calories; Z68.38 Body mass index [BMI] 38.0-38.9, adult; Z86.14 Personal history of Methicillin resistant Staphylococcus aureus infection; Z86.61 Personal history of infections of the central nervous system; Z88.2 Allergy status to sulfonamides
CPT/HCPCS: 36600; 70450; 70486; 70551; 71010; 71250; 71260; 72125; 72129; 72132; 74176; 74177; 80048; 80048 91; 80053; 80061; 80202; 81003; 82150; 82248; 82803; 82948; 83036; 83690; 83735; 84100; 84478; 84484; 84999; 85014; 85018; 85025; 85027; 85610; 85730; 86850; 86900; 86901; 86920; 87040; 87070; 87077; 87086; 87147; 87186; 87205; 87641; 90832; 92523 GN; 92526 GN; 92610 GN; 93005; 93306; 93880; 93970; 94002; 94003; 94640; 94640 76; 94760; 94799; 95819; 97530 GO; 97530 GP; 97532 GN; 99202; 99281; 99282; C1769; C1894; G0480; J0690; J1170; J1630; J1650; J1940; J1956; J2250; J2405; J2543; J2704; J2765; J3010; J3370; J3480; J3486; J7040; J7050; P9016; S0028

== ENCOUNTER 2017-05-03 21:32 | Emergency (ER) | payer OTHER ==
[~2017-05-03] VITALS: Ht 165.1 cm; Wt 99.2 kg
[~2017-05-03 21:32] MED LIST changes: +ASPIR-LOW81 MG PO; +ATORVASTATIN CA40 MG PO; +DIAZEPAM5 MG PO; +DUONEB 2.5-0.5 M3 ML IPPB; +FAMOTIDINE40 MG PO; +FLONASE16 G1 BOTH NARES; +HALDOL5 MG PO; +LISINOPRIL10 MG PO; +LOPRESSOR25 MG PO; +LOVENOX40 MG/0.4 SC; +MUCINEX600 MG PO; +NIFEREX-150,FE150 MG PO; +OXCARBAZEPINE300 MG PO; +OXYCODONE HCL5 MG PO; +OYSTER SHELL 51 EACH PO; +SENNA PLUS TAB1 EACH PO; +Tylenol Extra Streng PO
[2017-05-04 03:57] LABS: HEMATOCRIT 33.8 % (38.0-50.0); MCH 28.2 PG (29.0-34.0); MCHC 32.5 G/DL (30.0-36.0); MEAN PLAT.VOLUME 9.5 uM^3 (9.0-12.4); PLATELET COUNT 381 K/uL (156-360); RBC DIS.WIDTH-CV 13.2 % (11.8-14.6)
[2017-05-04 03:58] LABS: MCV 86.7 FL (86-99)
[2017-05-04 04:04] LABS: CHLORIDE 102 mEq/L (99-109); SODIUM 136 mEq/L (136-147)
[2017-05-04 04:06] LABS: GLUCOSE 99 mg/dL (70-99)
[2017-05-04 04:07] LABS: ANION GAP 11 MEQ/L (2-14)
[2017-05-04 04:10] LABS: GFR ESTIMATE (CALCULATED) > 59 mL/min/
[2017-05-04 04:11] LABS: UREA NITROGEN (BUN) 12 mg/dL (9-23)
[2017-05-04 05:05] VITALS: BP 131/79
== END 2017-05-04 05:08 | disposition home or self-care (01) ==
LOC: EME 21:32
PROVIDERS: Emergency Medicine
DX: R53.1 Weakness (principal); F17.200 Nicotine dependence, unspecified, uncomplicated
CPT/HCPCS: 71010; 80048; 85027; 99281; 99285; J1650; J7030

== ENCOUNTER 2017-05-21 16:37 | Emergency (ER) | payer OTHER ==
[~2017-05-21] VITALS: Ht 170.2 cm; Wt 99.3 kg
[2017-05-21 17:42] LABS: HEMATOCRIT 35.9 % (38.0-50.0); MCH 27.7 PG (29.0-34.0); MCHC 32.3 G/DL (30.0-36.0); MCV 85.7 FL (86-99); MEAN PLAT.VOLUME 9.2 uM^3 (9.0-12.4); PLATELET COUNT 338 K/uL (156-360); RBC DIS.WIDTH-CV 13.3 % (11.8-14.6); RBC DIS.WIDTH-SD 41.8 % (39-53); RED BLOOD COUNT 4.19 M/uL (4.00-5.50)
[2017-05-21 17:51] LABS: CHLORIDE 105 mEq/L (99-109); POTASSIUM 3.4 mEq/L (3.7-5.4); SODIUM 138 mEq/L (136-147)
[2017-05-21 17:52] LABS: GLUCOSE 107 mg/dL (70-99)
[2017-05-21 17:54] LABS: ANION GAP 12 MEQ/L (2-14)
[2017-05-21 17:56] LABS: GFR ESTIMATE (CALCULATED) > 59 mL/min/
[2017-05-21 17:57] LABS: UREA NITROGEN (BUN) 11 mg/dL (9-23)
[2017-05-21 18:22] LABS: TROP-I INTERPRETATION NEGATIVE; TROPONIN-I < 0.01 ng/mL (0.0-0.30)
[2017-05-21 19:52] VITALS: BP 118/77
== END 2017-05-21 20:00 | disposition home or self-care (01) ==
LOC: EME 16:37
PROVIDERS: Emergency Medicine
DX: S22.43XD Multiple fractures of ribs, bilateral, subsequent encounter for fracture with routine healing (principal); V29.9XXD Motorcycle rider (driver) (passenger) injured in unspecified traffic accident, subsequent encounter; F41.9 Anxiety disorder, unspecified; F32.9 Major depressive disorder, single episode, unspecified; F17.200 Nicotine dependence, unspecified, uncomplicated
CPT/HCPCS: 71020; 71275; 80048; 84484; 85027; 93005; 99281; 99285